=== PATIENT | male | born 1990 | race Caucasian/White ===

== ENCOUNTER 2025-10-13 13:10 | Outpatient (OUT) | payer OTHER, SELFPAY ==
--- OUTSIDE RECORDS SUMMARY | 2025-10-06 08:57 | XMS_ITS | Continuity of Care Document ---
Author Organization [facility] Address [address] [place] [address] Phone Care Team Providers Care Student Life Dean Name Role Phone Boo Jamil II Primary Care Provider Ivonne Naik APRN Attending Provider [phone] Care Teams Patient Care Team Team Status: Active Member Role/Relationship Status Dates Boo Jamil II MD Primary Care Provider Active Visit Care Team Team Status: Inactive Member Role/Relationship Status Dates Boo Jamil II MD Primary Care Provider Active Start: July 08, 2025 End: July 08Citlalli Lou ProviderActiveStart: July 08, 2025 End: July 08, 2025 Visit Care Team Team Status: Inactive Member Role/Relationship Status Dates Boo Jamil II MD Primary Care Provider Active Start: July 10, 2025 End: July 10Citlalli Lou ProviderActiveStart: July 10, 2025 End: July 10, 2025 Patient Care Team Team Status: Inactive Member Role/Relationship Status Dates Boo Jamil II MD Primary Care Provider Active Start: October 06, 2025 End: October 06Citlalli Lou ProviderActiveStart: October 06, 2025 End: October 06, 2025 Chief Complaint and Reason for Visit Chief Complaint Admit Date 2-3 Month Follow up *KSENIA SB TO ND July 08, 2025 9:49am LEFT CERVICAL TPI - APPROVED #[id number] July 10, 2025 12:55pm 2 month follow up October 06, 2025 1:12pm Reason for Visit Admit Date Myalgia July 08, 2025 9: 49am Spondylosis of cervical spine without my elopathy July 08, 2025 9:49am Muscle spasm July 10, 2025 12 :55pm Myalgia July 10, 2025 12 :55pm Neck pain July 10, 2025 12 :55pm Myalgia October 06, 2025 1:12pm Spondylosis of cervical spine without my elopathy October 06, 2025 1:12pm Allergies, Adverse Reactions, Alerts Allergen Type Severity Reaction Last Updated Verified Status amoxicillin Allergy Unknown Rash September 1:32pm Yes Active cefaclor Allergy Unknown Rash October 06, 2025 1:32pm Yes Active cefprozil Allergy Unknown Unknown Reaction October 06, 2025 1:32pm Yes Active colchicine Allergy Unknown Gastrointestinal Upset No vember 2024 1:32pm Yes Active gabapentin Allergy Unknown difficulty focusing Novem leonora 2024 1:32pm Yes Active Social History Smoking Status Status Start Date End Date Date of Observa tion Never smoked tobacco (finding) July 08, 2025 10:19am Observation Status Observation Response Date of Response Legal Sex [facility] (finding) [facility] Family History Relationship Condition Age at Onset Recorded Date/T michelle Not Specified Family history unknown Unknown Problems Active Problems Problem Diagnosis/Recorded Date Onset Date Stat us Spondylosis of cervical spin e without myelopathy July 08, 2025 9:42am Unknown Active Muscle spasm July 10, 2025 4:39pm Unknown Act keny Myalgia July 08, 2025 9:41am Unknown Act keny Neck pain July 10, 2025 4:37pm Unknown Act keny Medications Medication Status Dose Units Route Directions Qty Days Refills S tart Date Stop Date End Date Reason(s) Instructions Adherence Celecoxib (Celebrex) 100 mg capsule Discontinued 100 MG PO Twice daily July 07, 2025 11:00pmAugust 2024 9:43amCyclobenzaprine 10 mg tablet Ftuelemrbemi6YRErfne at bedtimeJuly 07, 2025 11:00pmAugus2024 9:44am 1/2-1 tablet orally daily at bedtime;Cyclobenzaprine 10 mg uyjjsgAtzsvg9CUJuuzv at rzlbxxx808BcblkqJuly 08, 2025 9:43am1/2-1 tablet orally daily at bedtime; Complies with drug therapyNaproxen 500 mg dhkvzrLsyopa040UQMSVmcjl daily as needed for kjdh205Ppgvxc 25th, 2025 11:00pmComplies with drug therapy Vital Signs Vital Reading Result Reference Range Collection Date/Time Height 77 [in_i] July 08, 2025 9:33boNexbtk549.98 kgAugust 2024 9:10amHeart Rate86 /min 60-100August 2024 9:10amBP Uhcuylis684 mm[Hg]100-140August 2024 9:10amBP Xjakrubky38 mm[Hg]60-100August 2024 9:10amBMI (Body Mass Index) 35.8 kg/j4Metfee 2024 9:10amHeart Rate83 /ndv52-613Xdkqmx 2024 12:14pmBP Xkpfpgse000 mm[Hg]100-140August 2024 12:14pmBP Mvrquhnwt01 mm[Hg]60-100August 2024 12:51kjVskyrr22 [in_i]October 06, 2025 1:28pm Tcijov569.31 kgNovember 2024 1:28pmHeart Rate75 /snp66-951QknmnmfrOctober 06, 2025 1:28pmOxygen saturation by Pulse zncevhch88 %95-100October 06, 2025 1:28pmBP Ziosdcvk890 mm[Hg]100-140Nov2024 1:28pmBP Tsigyjzay04 mm[Hg]60-100Nov2024 1:28pmBMI (Body Mass Index)40.1 kg/l9Rmhcjxgi 2024 1:28pm Advance Directives Advance Directive Response Recorded Date/ Time Advance Directives No July 08, 2025 8:47am Insurance Providers Guarantor Prashanth Penny Address [address] [facility] [address]uc[address] Info.Home Phone: Coverage Status Update:2025 Payer Group Member ID Coverage Type Subscriber Relationship to Subscriber Effective Date Expiration Date [employer] [id number] A [address] Id: [id number] [address] [facility] [address] Home Phone: seli Encounters Encounter Location(s) Arrival/Admit Date Discharge/Departure Date Discharge/Departure Disposition Provider(s) Departed Physician/ Provider Office Visit -[facility] [place] July 08, 2025 9:49am July 08, 2025 10:46am Discharged to home care or self care (routine discharge) Osmin Daniels APRN Departed Physician/ Provider Office Visit -[facility] [place] July 10, 2025 12:55pm July 10, 2025 1:18pm Discharged to home care or self care (routine discharge) Osmin Daniels APRN Departed Physician/ Provider Office Visit -[facility] October 06, 2025 1:12pm October 06, 2025 1:55pm Discharged to home care or self care (routine discharge) Osmin Daniels APRN Recent Diagnosis Onset Date Admit Date Myalgia Unknown July 08 9:49am Spondylosis of cervical spin e without myelopathy Unknown July 08, 2025 9:49am Muscle spasm Unknown July 10 12:55pm Myalgia Unknown July 10 12:55pm Neck pain Unknown July 10 12:55pm Myalgia Unknown October 06, 2 025 1:12pm Spondylosis of cervical spin e without myelopathy Unknown October 06, 2025 1:12pm Assessments Diagnosis Onset Date Resolution Status Admit Date Myalgia acuteAugus2024 9:49amSpondylosis of cervical spine without myelopathy acuteAugust 2024 9:49amMuscle spasmacuteAugus2024 12:55pmMyalgia acuteAugust 2024 12:55pmNeck painacuteAugust 2024 12:55pmMyalgia acuteNovember 2024 1:12pmSpondylosis of cervical spine without myelopathy acuteNovember 2024 1:12pm Plan of Treatment Author Ivonne Naik [facility]2024 9:54am1. 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 2. MRI of the cervical spine completed on 03/15/23 showed central disc protrusion which results in effacement of the thecal sac measuring 10 mm in AP dimension at C5-C6. No foraminal stenosis. At C7-T1 there is broad-based left-sided disc osteophyte complex measuring up to 3 mm in AP dimension resulting in moderate lateral recess narrowing on the left and moderate left foraminal narrowing without central stenosis. At T1-T2 mild endplate spurring without central or foraminal stenosis. At T2-3 there is right paracentral and lateral recess disc protrusion measuring 4 mm in AP dimension resulting in moderate to severe lateral recess narrowing on the right and vgqn-rk-kalbtvjf right foraminal narrowing without central stenosis 3. XR of the cervical spine 12/22/22 that revealed mild straightening of the normal lordotic curvature, likely muscle spasm. 4. XR of the thoracic spine that revealed mild dextroscoliosis and loss of the normal kyphotic curvature. . . The patient is a 34 year old male that presents with neck pain that radiates into the left shoulder. He has multilevel DDD of the cervical spine. He was on Gabapentin and felt groggy and fatigue with this without much benefit. He has been on flexeril and skelaxin in the past and zanaflex. He did not tolerate mobic. He is no longer taking the Celebrex as he took it for 2 weeks and could not feel any improvement. We will now try Naproxen. He does benefit from the Flexeril. It improves his sleep. He cannot take during the day as it is sedating. 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 His left arm does have numbness in the night as he does sleep on his left side. 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 We can consider neurosurgical referral based on his clinical course but he would like to hold off on this. He does continue with pain to the left trapezius muscle and left side of his neck. He has completed PT. He did have left side cervical/trapezius trigger points injections April 01, 2025. He did benefit as he was pain free for several weeks and then the pain started to return. We will reschedule these. We did discuss pain mgt option pending course. ?? 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 He is wearing splints at night which helps with the symptoms. Can consider ortho referral based on his symptoms. No worsening. . ??. ??. PLAN KSENIA from Dr. Fitzgerald to Schedule left sided cervical and trapezius TPI Trial Naproxen 500 mg po BID prn, for inflammatory pain, take with cracker or snack Continue flexeril 10mg 1/2 -1 tab PO at bedtime for muscle spasms Stop celebrex Continue with regular massage and stretching exercises Get back to heat on neck area Do not sleep on left side I counseled patient on potential medication side effects Consider neurosurgical referral pending his clinical course Consider pain mgt referral pending course The diagnosis was all discussed with the patient.?? All questions were answered and they agreed with the treatment plan.?? Patient will call if there are any new issues or questions. [facility] 20[facility] 1:41pm1. 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 2. MRI of the cervical spine completed on 03/15/23 showed central disc protrusion which results in effacement of the thecal sac measuring 10 mm in AP dimension at C5-C6. No foraminal stenosis. At C7-T1 there is broad-based left-sided disc osteophyte complex measuring up to 3 mm in AP dimension resulting in moderate lateral recess narrowing on the left and moderate left foraminal narrowing without central stenosis. At T1-T2 mild endplate spurring without central or foraminal stenosis. At T2-3 there is right paracentral and lateral recess disc protrusion measuring 4 mm in AP dimension resulting in moderate to severe lateral recess narrowing on the right and axgl-wb-wsrfkdsu right foraminal narrowing without central stenosis 3. XR of the cervical spine 12/22/22 that revealed mild straightening of the normal lordotic curvature, likely muscle spasm. 4. XR of the thoracic spine that revealed mild dextroscoliosis and loss of the normal kyphotic curvature. . . The patient is a 34 year old male that presents with neck pain that radiates into the left shoulder. He has multilevel DDD of the cervical spine. He was on Gabapentin and felt groggy and fatigue with this without much benefit. He has been on flexeril and skelaxin in the past and is now on zanaflex. He did not tolerate mobic. He is no longer taking the Celebrex as he took it for 2 weeks and could not feel any improvement. Naproxen was too hard on his stomach. He does benefit from the Flexeril. It improves his sleep. He cannot take during the day as it is sedating. 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 His left arm does have numbness in the night as he does sleep on his left side. 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 We can consider neurosurgical referral based on his clinical course but he would like to hold off on this. He does continue with pain to the left trapezius muscle and left side of his neck. He has completed PT. He did have left side cervical/trapezius trigger points injections April 01, 2025. He did benefit as he was pain free for several weeks and then the pain started to return. We will reschedule these. We did discuss pain mgt option pending course. ?? 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 He is wearing splints at night which helps with the symptoms. Can consider ortho referral based on his symptoms. No worsening. . ??. ??. PLAN Schedule left sided cervical and trapezius TPI He is not taking Naproxen 500 mg po BID prn, for inflammatory pain, take with cracker or snack Continue Zanaflex 4mg 1/2-1 at bedtime for muscle spasms Continue with regular massage and stretching exercises Get back to heat on neck area Do not sleep on left side I counseled patient on potential medication side effects Consider neurosurgical referral pending his clinical course Consider pain mgt referral pending course The diagnosis was all discussed with the patient.?? All questions were answered and they agreed with the treatment plan.?? Patient will call if there are any new issues or questions. Author Ivonne Naik [facility] 2024 4:48pmPatient ID: Prashanth Penny is a 34 y.o. male presenting for left sided cervical trigger point injections. Purpose of the procedure: Trigger point injections were performed today due to the patient having significant myalgias muscle spasms and pain. ?? Trigger Point Injection: left upper trapezius on 04/01/2025 9:00 AM Indications: pain, muscle spasm and myalgia Details: 25 G needle Medications: 40 mg methylPREDNISolone Na Suc (PF) 40 MG; 2 mL bupivacaine 0.25 % Outcome: tolerated well, no immediate complications Procedure, treatment alternatives, risks and benefits explained, specific risks discussed. Consent was given by the patient. ?? Injections given by Ivonen QUEVEDO into the left cervical paraspinals, left semispinalis capitis, and left upper trapezius ? During consent for the procedure, the patient denies cow milk allergy.?? The anesthetic used during the trigger injection was surface anesthesia.?? During the trigger point injection the patient was placed in a sitting position. Patient has consented after being explained the risks, complications, and benefits; including pneumothorax for the trigger point in the upper quarters and in the interscapular region. This was done using clean technique and surface anesthetic. The patient tolerated the procedure well.?? Future Tests Future scheduled test information is unavailable Pending Tests Pending diagnostic test information is unavailable Future Visits Future appointment information is unavailable Future Procedures Future procedure information is unavailable Future Medications Future medication information is unavailable Patient Instructions Patient instructions are unavailable
--- OUTSIDE RECORDS SUMMARY | 2025-10-13 13:15 | XMS_ITS | Clinical Summary ---
Author Organization [facility] Address [address] [place], [place] [address] Care Team Providers Care Insurance Broker Name Role Phone Omero TORRES MD, Boo Rainey Primary Care Provider [phone] Allergies Active AllergyReactionsCriticalityNoted SqbwIzcwpgblKhxkwxavcjqWgxttna56/11/2014 VuzxaernQeduveb86/11/5271CdctreysoShxkdhd63/11/2014 Medications MedicationSigDispense QuantityRefillsLast FilledStart DateEnd DateStatus diclofenac XR (VOLTAREN-XR) 100 mg Tb24 Take 100 mg by mouth twice daily as needed.10/11/2021ctive acetaminophen (TYLENOL) 500 mg tablet Take 1-2 tablets by mouth every 6 hours as needed for pain.12/25/2021ctive gabapentin (NEURONTIN) 300 mg capsule Take 1 capsule by mouth three times daily for 30 days. 90 capsule 12/28/2021ctive methylPREDNISolone (MEDROL, REMY,) 4 mg Dose-Pack Indications:Radiculopathy, lumbar regionAs instructed per package 21 tablet 12/28/2021ctive Active Problems ProblemNoted DateDiagnosed DateLumbar iozawhfqtjvhn47/11/2022cute lumbar shsrqqveuqoqo59/11/2022 Social History Tobacco UseTypesPacks/DayYears UsedDateSmoking Tobacco: NeverSmokeless Tobacco: NeverAlcohol UseStandard Drinks/WeekCommentsYes0 (1 standard drink = 0.6 oz pure alcohol)Area Deprivation IndexAnswerDate RecordedNational Score (1-100), lower number is lower boig688711/28/2022State Score (1-10), lower number is lower risk Not on file3Data from: https://www.neighborhoodatlas.medicine.[facility].edu/. Last address used for [address][birth year][address][birth year]22Sex and Gender InformationValueDate Recorded Sex Assigned at BirthNot on fileLegal NiiCqww9212/24/2021 11:14 AM ESTGender IdentityNot on fileSexual OrientationNot on file Last Filed Vital Signs Vital SignReadingTime TakenCommentsBlood Eljkgpkx946/56001/01/2022 9:29 AM EST Ubuxc572601/01/2022 9:29 AM FNDQybzqyoisss85.8 ??C (98.2 ??F)01/01/2022 9:29 AM ESTRespiratory Cxiw212001/01/2022 9:29 AM ESTOxygen Qdhtlslouc670%01/01/2022 9:29 AM ESTInhaled Oxygen Concentration--Zzemfs321.3 kg (338 lb)06/02/2022 8:33 AM MADKotosq009 cm (6' 4 )12/28/2021 1:04 PM ESTBody Mass Index41.14012/28/2021 1:04 PM EST Plan of Treatment Health MaintenanceDue DateLast DoneCommentsDTaP,Tdap,Td Vaccine (6 - Tdap) , 02/23/1994, 04/04/1993, Additional history existsAnxiety Fqnfymfdn37/01/2010Depression Iczsilvln85/01/2010HIV Zrhznwhwy78/01/2010 Hepatitis C Oyxzxtyut67/01/2010HPV Vaccine (1 - 3-dose SCDM series)2019 Covid-19 Vaccine (3 2024- season)509/, 07/19/2021Influenza Vaccine (#1)2025Hepatitis B FiqjpvnRjicspldo70/21/1994, 06/08/1994, 02/23/1994 Insurance Advance Directives * Full Code (Latest Code Status on File) Date ActivatedDate InactivatedComments12/24/2021 9:32 PM2 4:42 PMQuestion AnswerCommentsFull Code Order Discussed With:* Patient Care Teams Team MemberRelationshipSpecialtyStart DateEnd Date Boo Jamil II, MD [address] [facility] [address] [place] [address] PCP - GeneralInternal Medicine12/24/21
--- OUTSIDE RECORDS SUMMARY | 2025-10-13 13:15 | XMS_ITS | Encounter Summary ---
Author Organization [facility] Address [address] [facility] [place] [address] Care Team Providers Care Grounds Maintenance Worker Name Role Phone Boo Jamil MD Primary Care Provider [phone] Nicole Acevedo NP Unavailable [phone] Susi rBavo Unavailable Encounter Details DateTypeDepartmentCare Team (Latest Contact Info)Jftglmrbyvr48/24/2025bstract [facility] [address] [place] [address] Boo Jamil MD [address] [facility] [address] [place] [address] Social History Tobacco UseTypesPacks/DayYears UsedDateSmoking Tobacco: NeverSmokeless Tobacco: NeverAlcohol UseStandard Drinks/WeekCommentsYes0 (1 standard drink = 0.6 oz pure alcohol)B1300 Health LiteracyAnswerDate RecordedHow often do you need to have someone help you when you read instructions, pamphlets, or other written material from your doctor or pharmacy?Never11/18/2024Social Connection and Isolation PanelAnswerDate RecordedIn a typical week, how many times do you talk on the phone with family, friends, or neighbors?More than three times a week 11/18/2024How often do you get together with friends or relatives?Twice a week 11/18/2024How often do you attend yarsanism or confucianism services?Never11/18/2024Do you belong to any clubs or organizations such as yarsanism groups, unions, fraternal or athletic groups, or school groups?No01/06/2025How often do you attend meetings of the clubs or organizations you belong to?Never11/18/2024re you , , , , never , or living with a partner?Never mqjdlpi7111/18/2024UDIT-CAnswerDate RecordedQ1: How often do you have a drink containing alcohol?Monthly or less11/18/2024Q2: How many drinks containing alcohol do you have on a typical day when you are drinking?1 or 2 11/18/2024Q3: How often do you have six or more drinks on one occasion?Never 11/18/2024Overall Financial Resource Strain (CARDIA)AnswerDate RecordedHow hard is it for you to pay for the very basics like food, housing, medical care, and heating?Not hard at all11/18/2024[facility] [place] of Occupational Health - Occupational Stress QuestionnaireAnswerDate RecordedDo you feel stress - tense, restless, nervous, or anxious, or unable to sleep at night because yourmind is troubled all the time - these days?Rather much11/18/2024Exercise Vital Sign AnswerDate RecordedOn average, how many days per week do you engage in moderate to strenuous exercise (like a brisk walk)?2 days11/18/2024On average, how many minutes do you engage in exercise at this level?30 min11/18/2024Hunger Vital SignAnswerDate RecordedWithin the past 12 months, you worried that your food would run out before you got the money to buymore.Never true11/18/2024Within the past 12 months, the food you bought just didn't last and you didn't have money to get more.Never true11/18/2024PRAPARE - TransportationAnswerDate RecordedIn the past 12 months, has lack of transportation kept you from medical appointments or from getting medications?No11/18/2024In the past 12 months, has lack of transportation kept you from meetings, work, or from getting things needed for daily living?No11/18/2024Housing Stability Vital SignAnswerDate RecordedIn the last 12 months, was there a time when you were not able to pay the mortgage or rent on time?No11/18/2024Number of Times Moved in the Last Year Not on file11/18/2024t any time in the past 12 months, were you homeless or living in a jail (including now)?No11/18/2024Sex and Gender InformationValue Date RecordedSex Assigned at BirthNot on fileLegal EzyKiic9601/25/2023 6:45 PM EDT Gender IdentityNot on fileSexual OrientationNot on filedocumented as of this encounter Plan of Treatment Not on file documented as of this encounter Visit Diagnoses Not on filedocumented in this encounter Care Teams Team MemberRelationshipSpecialtyStart DateEnd Date Boo Jamil MD [address] [address] PCP - GeneralInternal Medicine03/21/23 Nicole Acevedo NP PCP - [facility]11/13/24 Susi Bravo PA Physician AssistantNeurology01/28/25documented as of this encounter
--- OUTSIDE RECORDS SUMMARY | 2025-10-13 13:15 | XMS_ITS | Clinical Summary ---
Author Organization [facility] Address [address] [place] [address] Care Team Providers Care Wardrobe Manager Name Role Phone Boo Jamil MD Primary Care Provider [phone] Nicole Acevedo NP Unavailable [phone] Susi Bravo Unavailable Allergies Active AllergyReactionsCriticalityNoted DateCommentsAmoxicillinRash,UnknownLow 08/23/2014CefaclorRash,IuxvpkiVww48/11/6151NkxkezaetQbfnhzl54/11/2014Colchicine GI mlbzioyjvjmQaiieg64/12/2024 Diarrhea, Vomiting NkpzymbfgdUzk42/12/2024 Difficulty focusing. Medications MedicationSigDispense QuantityRefillsLast FilledStart DateEnd DateStatus allopurinol (Zyloprim) 100 MG tablet Indications:Gouty arthropathyTake 1 tablet (100 mg) by mouth Daily 90 tablet 4Active Additional Information Patient not taking.Reported on 01/28/2025 methylPREDNISolone (Medrol Dospak) 4 MG tablets Indications:Gouty arthropathyFollow schedule on package instructions 21 tablet 5Active Additional Information Patient not taking.Reported on 01/28/2025 cyclobenzaprine (Flexeril) 10 MG tablet Indications:Spondylosis of cervical region without myelopathy or radiculopathy Take 0.5-1 tablets (5-10 mg) by mouth at bedtime 30 tablet 5Active celecoxib (CeleBREX) 100 MG capsule Indications:Spondylosis of cervical region without myelopathy or radiculopathy Take 1 capsule (100 mg) by mouth in the morning and 1 capsule (100 mg) before bedtime. 60 capsule 5Active Active Problems ProblemNoted DateDiagnosed DateImpaired fasting hffnrje5312/24/2024Morbid obesity with BMI of 50.0-59.9, adult4Cervical dstcxiylg51/31/2024arpal tunnel syndrome, left upper limb07/13/2024 Overview (07/13/2024): Mild CTS on the left on EMG. He is wearing splints at night which helps with the symptoms. Can consider ortho referral based on his symptoms Ntozmgwddei32/31/2024egeneration of cervical intervertebral disc07/13/2024 Carpal tunnel syndrome of left wrist07/13/2024Spondylosis of cervical region without myelopathy or nifrqqtpctcqz57/31/2024 Overview (07/13/2024): The patient is a 33 year old male that presents with neck pain that radiates into the right shoulder. He has multilevel DDD of the cervical spine. He is on Gabapentin, flexeril and skelaxin with toilerable symptoms. MRI did show significant foraminal stenosis the is contributing to his radicular symptoms. We can consider neurosurgical referral based on his clinical course. Lumbar zycmimpm87/02/2024Other chronic pain11/14/2023epression with anxiety 3Disc displacement, wmwhzm5410/18/2023Elevated uric acid in blood 10/18/2023outy tkveqbqkrux02/06/2023Lumbar uwdouqwxkpeng03/11/2022 Encounters DateTypeDepartmentCare WqurIspiygeojbu51/24/2025bstract [facility] [address] [facility] [address] [place] [id number] Boo Jamil MD from Last 3 Months Immunizations ImmunizationAdministration DatesNext QjzDIE6304/04/1993,02/10/1993,1992DTaP, Yvbxcgmarpq99/06/1998,02/23/1994Hep B, Adolescent or Xxhusales07/21/1994, 06/08/1994,02/23/1994HiB, jsuhrvbdusq84/13/1994,04/04/1993,02/10/1993,1992 MMR03/18/1998,02/23/1994OPV03/18/1998,02/23/1994,02/10/1993,1992 Family History CkajkvgrZubrAbcvhbWvfuvgekLfiznlgx0VkvmgoRvbutZindixUxkru Social History Tobacco UseTypesPacks/DayYears UsedDateSmoking Tobacco: NeverSmokeless [...] a week 11/18/2024How often do you attend roman catholic or rastafarian services?Never11/18/2024Do you belong to any clubs or organizations such as roman catholic groups, unions, fraternal or athletic groups, or school groups?No11/18/2024How often do you attend meetings of the clubs or organizations you belong to?Never11/18/2024re you , , , , never , or living with a partner?Never tjerjei9111/18/2024UDIT-CAnswerDate RecordedQ1: How often do you have a [...] housing, medical care, and heating?Not hard at all11/18/2024[facility] [place] of Occupational Health - Occupational Stress QuestionnaireAnswerDate [...] were you homeless or living in a halfway (including now)?No11/18/2024Sex and Gender InformationValue Date RecordedSex Assigned at BirthNot on fileLegal QjvLyaq1801/25/2023 6:45 PM EDT Gender IdentityNot on fileSexual OrientationNot on file Last Filed Vital Signs Vital SignReadingTime TakenCommentsBlood Shyljhog934/8404/01/2025 9:00 AM EDT Swakb083604/01/2025 9:00 AM IYQTknqesleqbz04.1 ??C (98.7 ??F)11/18/2024 10:47 AM ESTRespiratory Pojh595504/01/2025 9:00 AM EDTOxygen Hxgbntndov92%04/01/2025 9:00 AM EDTInhaled Oxygen Concentration--Cmqjje189 kg (343 lb)04/01/2025 9:00 AM EDT Shpisv178.6 cm (6' 5 )04/01/2025 9:00 AM EDTBody Mass Index40.67004/01/2025 9:00 AM EDT Plan of Treatment Health MaintenanceDue DateLast DoneCommentsCOVID-19 Vaccine ( season) 509/, 07/19/2021Influenza Vaccine (#1)2025Pneumococcal Vaccine: Pediatrics (0 to 5 Years) and At-Risk Patients (6 to 64 Years)Aged Out No longer eligible based on patient's age to complete this topic Insurance Care Teams Team MemberRelationshipSpecialtyStart DateEnd Boo Jamil MD [address] [facility] [address] [place] [address] PCP - GeneralInternal Medicine03/21/23 Nicole Acevedo COCOA MILL OPERATOR PCP - [facility]11/13/24 Susi Bravo PA Physician AssistantNeurology01/28/25
--- NOTE | 2025-10-13 13:53 | P.CN_ITS ---
Consult Note: HPI Data of Consult Patient: new to practice Consult date: 10/13/25 Requesting Physician: Jannet Gil MD Primary Care Provider: JANUARY SIMS Consult Narrative Reason for consult: neck pain, bilateral arm numbness Narrative: 35yom who presents for evaluation. notes longstanding neck and left shoulder pain for >3 years, as well as worsening numbness and tingling in bilateral upper extremities. states that he first noticed this after waking up from lumbar surgery several years ago. has continued in a series of provider directed home exercises and chiropractic therapy >6 weeks, without benefit. uses flexeril as needed, naproxen has not helped. cc:: CC: Jannet Gil MD Review of Systems ROS Status of ROS 10 or more systems reviewed and unremark able except as noted in history and below Meds Home Medications and Allergies Home Medications ?Medication ?Instructions ?Recorded ?Confirmed ?Type pregabalin 50 mg capsule (Lyrica) 50 mg PO TID #90 cap s 10/13/25 Rx Exam Narrative Exam Narrative: Psych-alert and oriented x 3.? Attentive and appropriate, constitutionally normal, displays normal mood and affect per situation.? There are no obvious deficits in memory, reasoning, or intellect.? Skin-no obvious rashes, bruising, or erythema noted to the patient's area of pain.? Extremities-upper extremities are warm with minimal edema and palpable pulses. Cervical- tenderness to palpation noted in the cervical spine and paraspinal musculature.? Pain is elicited with flexion, extension, and lateral rotation of the cervical spine.? Range of motion is diminished due to pain. Facet loading maneuvers are positive.? Strength-unremarkable and within normal limits Sensory-no notable sensory deficits in the bilateral upper extremities to touch or pinprick with the exception to decreased sensation to the bilateral C5, 6, 7 dermatomal distribution.? Coordination remains intact.? Gait remains non-antalgic. Assessment and Plan Assessment and Plan (1) Cervical stenosis of spinal canal: (2) Cervical spondylosis: Plan 35yom who presents for evaluation. failed conservative measures, as noted. previous cervical imaging done several years ago. given worsening symptoms and time course, would like to obtain cervical mri without contrast. he is in agreement. meds reviewed. will trial lyrica 50mg tid. follow up after imaging.
== END 2025-10-13 13:11 | disposition home or self-care (01) ==
LOC: PM 13:11
PROVIDERS: PCP Internal Medicine; Visit Provider Anesthesiology
DX: M48.02 Spinal stenosis, cervical region (principal); M47.812 Spondylosis without myelopathy or radiculopathy, cervical region
CPT/HCPCS: G0463

== ENCOUNTER 2025-10-30 10:24 | Outpatient (OUT) | payer OTHER, SELFPAY ==
--- NOTE | 2025-10-30 10:31 | MR_ITS ---
[address] [address] Patient Name: VADIM SUGGS MRN: [id number] date: 1990 Sex: M Assigned Patient Location: MRI Current Patient Location: MRI Accession/Order Number: [id number] Exam Date: 10/30/2025 10:35 Report Date: 10/30/2025 12:30 At the request of: YOLANDA STINSON MD Procedure: MR cervical spine wo con EXAMINATION: MRI OF THE CERVICAL SPINE WITHOUT CONTRAST CLINICAL DATA: Chronic neck pain with left arm numbness COMPARISON: 03/15/2023 TECHNIQUE: Multiecho imaging was performed in the sagittal and axial plane without contrast administration. FINDINGS: There is continued straightening of the normal cervical lordosis. Alignment is maintained on the sagittal images. There is no marrow edema or acute compression fractures. There is a normal cervicomedullary junction. The cord is normal in caliber and signal intensity throughout its imaged course. A few small shotty cervical lymph nodes are visualized. At C2-3, no disc bulge or herniation is seen. There is slight asymmetric facet disease on the left. No stenosis is identified. At C3-4, the disc is normal in height and signal intensity. No disc bulge or herniation is noted. There is mild facet disease, greater on the left. There is mild right and suspected moderate left foraminal encroachment. At C4-5, the disc is within normal limits for height and signal intensity. No disc bulge or herniation is identified. There is bilateral facet hypertrophy, greater on the left where there is associated moderate foraminal encroachment. At C5-6 there is disc desiccation. There is mild central/left parasagittal disc osteophytic bulging. There is minor facet disease. There is continued thecal sac effacement on the left approaching and slightly indenting the cord, similar to the prior. Slight foraminal encroachment is present, greater on the left. At C6-7, there is minor disco-osteophytic bulging toward the left lateral recess/foramen. There is no significant thecal sac effacement. There is mild facet disease. Mild to moderate left foraminal encroachment is again noted. At the cervicothoracic junction, there is a broad-based left parasagittal disc protrusion that is similar to the prior. There is continued mild thecal sac and moderate left neural foraminal encroachment. At T2-3, there is no axial imaging however there is disco exophytic bulging in the right parasagittal region extending through the neural foramen where there is associated thecal sac effacement and foraminal encroachment. MR/MR cervical spine wo con IMPRESSION:: CONTINUED STRAIGHTENING OF THE NORMAL CERVICAL LORDOSIS. CONTINUED MILD DISCOVERTEBRAL DEGENERATIVE CHANGES, GREATER DISTALLY OUTLINED ABOVE. Impression dictated by: Sarah Salmon M.D. 10/30/2025 12:30 PM Dictation Location: [place] [address] Electronically authenticated by: [id number] Y Date: 10/30/2025 12:30
--- OUTSIDE RECORDS SUMMARY | 2025-10-30 10:33 | XMS_ITS | Clinical Summary ---
Author Organization [facility] Address [address] [place], [place] [address] Care Team Providers Care Laborer Bituminous Paving Name Role Phone Omero TORRES MD, Boo Rainey Primary Care Provider [phone] Allergies Active AllergyReactionsCriticalityNoted CwyjSoltitzaRuglhhxhmzoDjhpduk73/11/2014 PrbyzknaCypanqq21/11/5210WfdakdsllSmjqjny57/11/2014 Medications MedicationSigDispense QuantityRefillsLast FilledStart DateEnd DateStatus diclofenac [...] tablet 12/28/2021ctive Active Problems ProblemNoted DateDiagnosed DateLumbar lyihuynoeircs05/11/2022cute lumbar kungceigkzhgn08/11/2022 Social History Tobacco UseTypesPacks/DayYears UsedDateSmoking Tobacco: NeverSmokeless Tobacco: NeverAlcohol UseStandard Drinks/WeekCommentsYes0 (1 standard drink = 0.6 oz pure alcohol)Area Deprivation IndexAnswerDate RecordedNational Score (1-100), lower number is lower rxpp700711/28/2022State Score (1-10), lower number is lower risk Not on file3Data from: https://www.neighborhoodatlas.medicine.[facility].edu/. Last address used for [address]11/28/2022Sex and Gender InformationValueDate Recorded Sex Assigned at BirthNot on fileLegal IdkZrwm6312/24/2021 11:14 AM ESTGender IdentityNot on fileSexual OrientationNot on file Last Filed Vital Signs Vital SignReadingTime TakenCommentsBlood Zoterbqw404/56001/01/2022 9:29 AM EST Qygub410301/01/2022 9:29 AM KOZNvodnbvfsux29.8 ??C (98.2 ??F)01/01/2022 9:29 AM ESTRespiratory Elch719201/01/2022 9:29 AM ESTOxygen Aivqdcvjrn727%01/01/2022 9:29 AM ESTInhaled Oxygen Concentration--Mazxho316.3 kg (338 lb)06/02/2022 8:33 AM DWOArauuw105 cm (6' 4 )12/28/2021 1:04 PM ESTBody Mass Index41.14012/28/2021 1:04 PM EST Plan of Treatment Health MaintenanceDue DateLast DoneCommentsDTaP,Tdap,Td Vaccine (6 - Tdap) , 02/23/1994, 04/04/1993, Additional history existsAnxiety Xicvprcuz03/01/2010Depression Wvtiwybzd53/01/2010HIV Dhwepeitr32/01/2010 Hepatitis C Eayxhherf02/01/2010HPV Vaccine (1 - 3-dose SCDM series)2019 Covid-19 Vaccine (3 2024- season)509/, 07/19/2021Influenza Vaccine (#1)2025Hepatitis B EwmyjdcZfzxjttgq01/21/1994, 06/08/1994, 02/23/1994 Insurance Advance Directives * Full Code (Latest Code Status on File) Date ActivatedDate InactivatedComments12/24/2021 9:32 PM2 4:42 PMQuestion AnswerCommentsFull Code Order Discussed With:* Patient Care Teams Team MemberRelationshipSpecialtyStart DateEnd Date Boo Jamil II, MD [address] [facility] [address] [place] [address] PCP - GeneralInternal Medicine12/24/21
--- OUTSIDE RECORDS SUMMARY | 2025-10-30 10:33 | XMS_ITS | Clinical Summary ---
Author Organization [facility] Address [address] [place] [address] Care Team Providers Care Geotechnical Operating Engineer Name Role Phone Boo Jamil MD Primary Care Provider [phone] Nicole Acevedo NP Unavailable [phone] Susi Bravo Unavailable Allergies Active AllergyReactionsCriticalityNoted DateCommentsAmoxicillinRash,UnknownLow 08/23/2014CefaclorRash,XvjbujwSrt17/11/1223FmmfjqvqiWmathtf95/11/2014Colchicine GI msnzdvgwwelCdxagm04/12/2024 Diarrhea, Vomiting SuntjpaseuGzu04/12/2024 Difficulty focusing. Medications MedicationSigDispense QuantityRefillsLast FilledStart DateEnd [...] 5Active Active Problems ProblemNoted DateDiagnosed DateImpaired fasting zfknzfl6612/24/2024Morbid obesity with BMI of 50.0-59.9, adult4Cervical enaomyttu57/31/2024arpal tunnel syndrome, left upper limb07/13/2024 Overview (07/13/2024): Mild CTS on the left on EMG. He is wearing splints at night which helps with the symptoms. Can consider ortho referral based on his symptoms Iygxtgtktxe34/31/2024egeneration of cervical intervertebral disc07/13/2024 Carpal tunnel syndrome of left wrist07/13/2024Spondylosis of cervical region without myelopathy or rzozzzqmdowdm84/31/2024 Overview (07/13/2024): The patient is a 33 year old male that presents with neck pain that radiates into the right shoulder. He has multilevel DDD of the cervical spine. He is on Gabapentin, flexeril and skelaxin with toilerable symptoms. MRI did show significant foraminal stenosis the is contributing to his radicular symptoms. We can consider neurosurgical referral based on his clinical course. Lumbar eywdheyz90/02/2024Other chronic pain11/14/2023epression with anxiety 3Disc displacement, kzdtjf6010/18/2023Elevated uric acid in blood 10/18/2023outy wqjxjomqjoj81/06/2023Lumbar soetotlrogizk67/11/2022 Encounters DateTypeDepartmentCare SivcKnuahfqocwy14/24/2025bstract [facility] [address] [place] [address] [place] [phone] Boo Jamil MD from Last 3 Months Immunizations ImmunizationAdministration DatesNext MyrEVD1304/04/1993,02/10/1993,1992DTaP, Lcbdswjhhau36/06/1998,02/23/1994Hep B, Adolescent or Fmziqmddy06/21/1994, 06/08/1994,02/23/1994HiB, oejgpnuimyr98/13/1994,04/04/1993,02/10/1993,1992 MMR03/18/1998,02/23/1994OPV03/18/1998,02/23/1994,02/10/1993,1992 Family History HthklhyaRoscHvhigxDauxbfbgMlcxeddy7IbtlgkQwihbQwrpycJhtah Social History Tobacco UseTypesPacks/DayYears UsedDateSmoking Tobacco: NeverSmokeless [...] a week 11/18/2024How often do you attend congregation or voodoo services?Never11/18/2024Do you belong to any clubs or organizations such as congregation groups, unions, fraternal or athletic groups, or school groups?No11/18/2024How often do you attend meetings of the clubs or organizations you belong to?Never11/18/2024re you , , , , never , or living with a partner?Never lbphawy5711/18/2024UDIT-CAnswerDate RecordedQ1: How often do you have a [...] housing, medical care, and heating?Not hard at all11/18/2024[facility] [place] of Occupational Health - Occupational Stress QuestionnaireAnswerDate [...] were you homeless or living in a residential (including now)?No11/18/2024Sex and Gender InformationValue Date RecordedSex Assigned at BirthNot on fileLegal UkzCnmt6101/25/2023 6:45 PM EDT Gender IdentityNot on fileSexual OrientationNot on file Last Filed Vital Signs Vital SignReadingTime TakenCommentsBlood Koqhfign270/8404/01/2025 9:00 AM EDT Uvnlk343804/01/2025 9:00 AM VQGIjfhjeadckt36.1 ??C (98.7 ??F)11/18/2024 10:47 AM ESTRespiratory Qcby072804/01/2025 9:00 AM EDTOxygen Gmttewytwl44%04/01/2025 9:00 AM EDTInhaled Oxygen Concentration--[place]299 kg (343 lb)04/01/2025 9:00 AM EDT Grueuv393.6 cm (6' 5 )04/01/2025 9:00 AM EDTBody Mass Index40.67004/01/2025 9:00 AM EDT Plan of Treatment Health MaintenanceDue DateLast DoneCommentsCOVID-19 Vaccine ( season) 509/, 07/19/2021Influenza Vaccine (#1)2025Pneumococcal Vaccine: Pediatrics (0 to 5 Years) and At-Risk Patients (6 to 64 Years)Aged Out No longer eligible based on patient's age to complete this topic Insurance Care Teams Team MemberRelationshipSpecialtyStart DateEnd Boo Jamil MD [address] [facility] [address] [place] [address] PCP - GeneralInternal Medicine03/21/23 Nicole Acevedo ASBESTOS WIRE FINISHER PCP - [facility]11/13/24 Susi Bravo PA Physician AssistantNeurology01/28/25
== END 2025-10-30 10:25 | disposition home or self-care (01) ==
LOC: MRI 10:26
PROVIDERS: PCP Internal Medicine; Visit Provider Anesthesiology
DX: M48.02 Spinal stenosis, cervical region (principal); M50.30 Other cervical disc degeneration, unspecified cervical region
CPT/HCPCS: 72141

== ENCOUNTER 2025-11-03 14:04 | Outpatient (OUT) | payer OTHER, SELFPAY ==
--- OUTSIDE RECORDS SUMMARY | 2025-11-03 14:09 | XMS_ITS | Encounter Summary ---
Author Organization [facility] Address [address] [place] [address] Care Team Providers Care Vending Technician Name Role Phone January Jamil MD Primary Care Provider [phone] Nicole Acevedo NP Unavailable [phone] Susi Bravo Unavailable Encounter Details DateTypeDepartmentCare Team (Latest Contact Info)Iberlyfoxym26/18/2025linisync Result Encounter [facility] External Department Unsolicited Provider, Generic External Data Social History Tobacco UseTypesPacks/DayYears UsedDateSmoking Tobacco: NeverSmokeless [...] a week 11/18/2024How often do you attend gnosticist or zoroastrianism services?Never11/18/2024Do you belong to any clubs or organizations such as gnosticist groups, unions, fraternal or athletic groups, or school groups?No11/18/2024How often do you attend meetings of the clubs or organizations you belong to?Never11/18/2024re you , , , , never , or living with a partner?Never cfesuua7611/18/2024UDIT-CAnswerDate RecordedQ1: How often do you have a [...] housing, medical care, and heating?Not hard at all11/18/2024[facility] [place] of Occupational Health - Occupational Stress QuestionnaireAnswerDate [...] were you homeless or living in a retirement (including now)?No11/18/2024Sex and Gender InformationValue Date RecordedSex Assigned at BirthNot on fileLegal PpqPemu0501/25/2023 6:45 PM EDT Gender IdentityNot on fileSexual OrientationNot on filedocumented as of this encounter Plan of Treatment Not on file documented as of this encounter Procedures Procedure NamePriorityDate/TimeAssociated DiagnosisCommentsMR CERVICAL SPINE WO IVGGUJGB10/18/2025 12:30 PM EST documented in this encounter Results * MR cervical spine wo contrast (10/30/2025 12:30 PM EST)Anatomical Region LateralityModalitySpine, C-spineMagnetic ResonanceSpecimen (Source)Anatomical Location / LateralityCollection Method / VolumeCollection TimeReceived Time 10/30/2025 12:30 PM EST Narrative 10/30/2025 12:32 PM EST [facility] ?[address] ? [place] [address] ? Magnetic Resonance Report ? Signed ? Patient: ESVADIM ?MR#: [id number] ?? : 1990 ?Acct:[id number] ?? Age/Sex: 35 / M ?ADM Date: 10/30/25 ?? Loc: MRI ? Attending Dr: Jannet Gil M.D. ? Ordering Physician: Jannet Gil M.D. ?? Date of Service: 10/30/25 ?? Procedure(s): MR cervical spine wo con ?? Accession Number(s): [id number] ? cc: JANUARY JAMIL ; Jannet Gil M.D. ? [facility] ? [address] ? [place] [address] ? Patient Name: ?? VADIM PENNY ? MRN: [id number] ? date: 1990 ?Sex: M ?? Assigned Patient Location: MRI ?? Current Patient Location: MRI ?? Accession/Order Number: [id number] ?? Exam Date: 10/30/2025 ??10:35 ?Report Date: 10/30/2025 ??12:30 ? At the request of: ?? ANDRIUS ??GIEDRAITIS ??MD ? Procedure: ??MR cervical spine wo con ? EXAMINATION: ??MRI OF THE CERVICAL SPINE WITHOUT CONTRAST ? CLINICAL DATA: ??Chronic neck pain with left arm numbness ? COMPARISON: 03/15/2023 ? TECHNIQUE: ??Multiecho imaging was performed in the sagittal and axial plane ?? without contrast administration. ? FINDINGS: ??There is continued straightening of the normal cervical lordosis. ? Alignment is maintained on the sagittal images. ??There is no marrow edema or ?? acute compression fractures. ??There is a normal cervicomedullary junction. ? The cord is normal in caliber and signal intensity throughout its imaged ?? course. ??A few small shotty cervical lymph nodes are visualized. ? At C2-3, no disc bulge or herniation is seen. ??There is slight asymmetric ?? facet disease on the left. ??No stenosis is identified. ? At C3-4, the disc is normal in height and signal intensity. ??No disc bulge or ?? herniation is noted. ??There is mild facet disease, greater on the left. ??There ?? is mild right and suspected moderate left foraminal encroachment. ? At C4-5, the disc is within normal limits for height and signal intensity. ??No ?? disc bulge or herniation is identified. ??There is bilateral facet hypertrophy, ?? greater on the left where there is associated moderate foraminal encroachment. ? At C5-6 there is disc desiccation. ??There is mild central/left parasagittal ?? disc osteophytic bulging. ??There is minor facet disease. ??There is continued ?? thecal sac effacement on the left approaching and slightly indenting the cord, ?? similar to the prior. ??Slight foraminal encroachment is present, greater on ?? the left. ? At C6-7, there is minor disco-osteophytic bulging toward the left lateral ?? recess/foramen. ??There is no significant thecal sac effacement. ??There is mild ?? facet disease. ??Mild to moderate left foraminal encroachment is again noted. ? At the cervicothoracic junction, there is a broad-based left parasagittal disc ?? protrusion that is similar to the prior. ??There is continued mild thecal sac ?? and moderate left neural foraminal encroachment. ? At T2-3, there is no axial imaging however there is disco exophytic bulging in ?? the right parasagittal region extending through the neural foramen where there ?? is associated thecal sac effacement and foraminal encroachment. ? MR/MR cervical spine wo con ?? IMPRESSION:: ? CONTINUED STRAIGHTENING OF THE NORMAL CERVICAL LORDOSIS. ? CONTINUED MILD DISCOVERTEBRAL DEGENERATIVE CHANGES, GREATER DISTALLY ?? OUTLINED ABOVE. ? Impression dictated by: Sarah Salmon M.D. ??10/30/2025 12:30 PM ? Dictation Location: RADIO-PC-30 ? Electronically authenticated by: [id number] ??Y ?? Date: 10/30/2025 ??12:30 ? Dictated By: ?Sarah Salmon M.D. ? Signed By: ?10/30/25 1232 ? DD/ 1230 ? TD/TT: ? Art Museum Aide: Procedure Note Radiology, Radiologist, MD - 10/30/2025 [place] [address] Magnetic Resonance Report Signed Patient: VADIM PENNY AMR#: [id number] : 1990Acct:[id number] Age/Sex: 35 / MADM Date: 10/30/25 Loc: MRI Attending Dr: Jannet Gil M.D. Ordering Physician: Jannet Gil M.D. Date of Service: 10/30/25 Procedure(s): MR cervical spine wo con Accession Number(s): [id number] cc: JANUARY JAMIL ; Jannet Gil M.D. The [place] [id number] Patient Name: VADIM PENNY MRN: [id number] date: 1990 Sex: M Assigned Patient Location: MRI Current Patient Location: MRI Accession/Order Number: [id number] Exam Date: 10/30/2025 10:35 Report Date: 10/30/2025 12:30 At the request of: JANNET GIL MD Procedure: MR cervical spine wo con EXAMINATION: MRI OF THE CERVICAL SPINE WITHOUT CONTRAST CLINICAL DATA: Chronic neck pain with left arm numbness COMPARISON: 03/15/2023 TECHNIQUE: Multiecho imaging was performed in the sagittal and axialplane without contrast administration. FINDINGS: There is continued straightening of the normal cervicallordosis. Alignment is maintained on the sagittal images. There is no marrow edemaor acute compression fractures. There is a normal cervicomedullary junction. The cord is normal in caliber and signal intensity throughout its imaged course. A few small shotty cervical lymph nodes are visualized. At C2-3, no disc bulge or herniation is seen. There is slight asymmetric facet disease on the left. No stenosis is identified. At C3-4, the disc is normal in height and signal intensity. No disc bulgeor herniation is noted. There is mild facet disease, greater on the left.There is mild right and suspected moderate left foraminal encroachment. At C4-5, the disc is within normal limits for height and signal intensity.No disc bulge or herniation is identified. There is bilateral facethypertrophy, greater on the left where there is associated moderate foraminalencroachment. At C5-6 there is disc desiccation. There is mild central/leftparasagittal disc osteophytic bulging. There is minor facet disease. There iscontinued thecal sac effacement on the left approaching and slightly indenting thecord, similar to the prior. Slight foraminal encroachment is present, greateron the left. At C6-7, there is minor disco-osteophytic bulging toward the left lateral recess/foramen. There is no significant thecal sac effacement. There ismild facet disease. Mild to moderate left foraminal encroachment is againnoted. At the cervicothoracic junction, there is a broad-based left parasagittaldisc protrusion that is similar to the prior. There is continued mild thecalsac and moderate left neural foraminal encroachment. At T2-3, there is no axial imaging however there is disco exophyticbulging in the right parasagittal region extending through the neural foramen wherethere is associated thecal sac effacement and foraminal encroachment. MR/MR cervical spine wo con IMPRESSION:: CONTINUED STRAIGHTENING OF THE NORMAL CERVICAL LORDOSIS. CONTINUED MILD DISCOVERTEBRAL DEGENERATIVE CHANGES, GREATER DISTALLY OUTLINED ABOVE. Impression dictated by: Sarah Salmon M.D. 10/30/2025 12:30 PM Dictation Location: [place] [address] Electronically authenticated by: [id number] Y Date: 2:30 Dictated By: Sarah Salmon M.D. Signed By:10/30/25 1232 DD/ 1230 TD/TT: Art Museum Aide: Authorizing ProviderResult TypeResult StatusGeneric External Data ProviderIMG MRI PROCEDURESFinal Result documented in this encounter Visit Diagnoses Not on filedocumented in this encounter Care Teams Team MemberRelationshipSpecialtyStart DateEnd Date January Jamil MD [address] [address] PCP - GeneralInternal Medicine03/21/23 Nicole Acevedo NP PCP - [facility]11/13/24 Susi Bravo PA Physician AssistantNeurology01/28/25documented as of this encounter
--- OUTSIDE RECORDS SUMMARY | 2025-11-03 14:09 | XMS_ITS | Clinical Summary ---
Author Organization [facility] Address [address] [place] [address] Care Team Providers Care Deliverer Outside Name Role Phone January Jamil MD Primary Care Provider [phone] Nicole Acevedo NP Unavailable [phone] Susi Bravo Unavailable Allergies Active AllergyReactionsCriticalityNoted DateCommentsAmoxicillinRash,UnknownLow 08/23/2014CefaclorRash,ZljklpiEos56/11/3368PgmkcrirqOxtjoiz68/11/2014Colchicine GI pzwczjfeevcXosyeb86/12/2024 Diarrhea, Vomiting LshnbhbnydTww24/12/2024 Difficulty focusing. Medications MedicationSigDispense QuantityRefillsLast FilledStart DateEnd [...] 5Active Active Problems ProblemNoted DateDiagnosed DateImpaired fasting lxjupuh1612/24/2024Morbid obesity with BMI of 50.0-59.9, adult4Cervical ujudgejxo96/31/2024arpal tunnel syndrome, left upper limb07/13/2024 Overview (07/13/2024): Mild CTS on the left on EMG. He is wearing splints at night which helps with the symptoms. Can consider ortho referral based on his symptoms Tvsgvylusuy84/31/2024egeneration of cervical intervertebral disc07/13/2024 Carpal tunnel syndrome of left wrist07/13/2024Spondylosis of cervical region without myelopathy or uwwdowctgmjky32/31/2024 Overview (07/13/2024): The patient is a 33 year old male that presents with neck pain that radiates into the right shoulder. He has multilevel DDD of the cervical spine. He is on Gabapentin, flexeril and skelaxin with toilerable symptoms. MRI did show significant foraminal stenosis the is contributing to his radicular symptoms. We can consider neurosurgical referral based on his clinical course. Lumbar rmceouid21/02/2024Other chronic pain11/14/2023epression with anxiety 3Disc displacement, olqoav8210/18/2023Elevated uric acid in blood 10/18/2023outy aoezmhyygnn27/06/2023Lumbar oexxewexuqhfu60/11/2022 Encounters DateTypeDepartmentCare YqteYnidseurhlv01/18/2025Clinisync Result Encounter [facility] External Department Unsolicited Provider, Generic External Data 5Abstract [facility] [address] [facility] [address] [place] [id number] January Jamil MD from Last 3 Months Immunizations ImmunizationAdministration DatesNext UbvXEG8804/04/1993,02/10/1993,1992DTaP, Dnvozgguyrs72/06/1998,02/23/1994Hep B, Adolescent or Ejsknumjh53/21/1994, 06/08/1994,02/23/1994HiB, nsdgvsahfnp40/13/1994,04/04/1993,02/10/1993,1992 MMR03/18/1998,02/23/1994OPV03/18/1998,02/23/1994,02/10/1993,1992 Family History SaawklruZmmaPzeetcGoitxaohTslvlkbg7VbvaxgCebgxPwyiuyQkfxc Social History Tobacco UseTypesPacks/DayYears UsedDateSmoking Tobacco: NeverSmokeless [...] 11/18/2024How often do you attend congregation or scientologist services?Never11/18/2024Do you belong to any clubs or organizations such as congregation groups, unions, fraternal or athletic groups, or school groups?No11/18/2024How often do you attend meetings of the clubs or organizations you belong to?Never11/18/2024re you , , , , never , or living with a partner?Never zdtxuxi8711/18/2024UDIT-CAnswerDate RecordedQ1: How often do you have a [...] housing, medical care, and heating?Not hard at all11/18/2024[facility] [place] of Occupational Health - Occupational Stress QuestionnaireAnswerDate [...] were you homeless or living in a penitentiary (including now)?No11/18/2024Sex and Gender InformationValue Date RecordedSex Assigned at BirthNot on fileLegal DpfWymj3101/25/2023 6:45 PM EDT Gender IdentityNot on fileSexual OrientationNot on file Last Filed Vital Signs Vital SignReadingTime TakenCommentsBlood Nttrhuzw528/8404/01/2025 9:00 AM EDT Plwfd358504/01/2025 9:00 AM VNBYrmmsovsxls93.1 ??C (98.7 ??F)11/18/2024 10:47 AM ESTRespiratory Nsyr556604/01/2025 9:00 AM EDTOxygen Jceefwmxaj24%04/01/2025 9:00 AM EDTInhaled Oxygen Concentration--Uhttkh224 kg (343 lb)04/01/2025 9:00 AM EDT Yzuuvl095.6 cm (6' 5 )04/01/2025 9:00 AM EDTBody Mass Index40.67004/01/2025 9:00 AM EDT Plan of Treatment Health MaintenanceDue DateLast DoneCommentsCOVID-19 Vaccine ( season) /, 07/19/2021Influenza Vaccine (#1)2025Pneumococcal Vaccine: Pediatrics (0 to 5 Years) and At-Risk Patients (6 to 64 Years)Aged Out No longer eligible based on patient's age to complete this topic Procedures Procedure NamePriorityDate/TimeAssociated DiagnosisCommentsMR CERVICAL SPINE WO ZLYYQKUU35/18/2025 12:30 PM EST from Last 3 Months Results * MR cervical spine wo contrast (10/30/2025 12:30 PM EST)Anatomical Region LateralityModalitySpine, C-spineMagnetic ResonanceSpecimen (Source)Anatomical Location / LateralityCollection Method / VolumeCollection TimeReceived Time 10/30/2025 12:30 PM EST Narrative 10/30/2025 12:32 PM EST [facility] ?[address] ? [place] [address] ? Magnetic Resonance Report ? Signed ? Patient: ESVADIM Cary ?MR#: [id number] ?? : 1990 ?Acct:[id number] ?? Age/Sex: 35 / M ?ADM Date: 10/30/25 ?? Loc: MRI ? Attending Dr: Jannet Gil M.D. ? Ordering Physician: Jannet Gil M.D. ?? Date of Service: 10/30/25 ?? Procedure(s): MR cervical spine wo con ?? Accession Number(s): [id number] ? cc: JANUARY JAMIL ; Jannet Gil M.D. ? [facility] ? [address] ? [place] [address] ? Patient Name: ?? VADIM PENNY ? MRN: [id number] ? date: 1990 ?Sex: M ?? Assigned Patient Location: MRI ?? Current Patient Location: MRI ?? Accession/Order Number: [id number] ?? Exam Date: 10/30/2025 ??10:35 ?Report Date: [...] M.D. ??10/30/2025 12:30 PM ? Dictation Location: [place] [address] ? Electronically authenticated by: [id number] ??Y ?? Date: 10/30/2025 ??12:30 ? Dictated By: ?Sarah Salmon M.D. ? Signed By: ?10/30/25 1232 ? DD/ 1230 ? TD/TT: ? Preassembler And Inspector: Procedure Note Radiology, Radiologist, - 10/30/2025 [place] [address] Magnetic Resonance Report Signed Patient: VADIM PENNY AMR#: [id number] : 1990Acct:[id number] Age/Sex: 35 / MADM Date: 10/30/25 Loc: MRI Attending Dr: Jannet Gil M.D. Ordering Physician: Jannet Gil M.D. Date of Service: 10/30/25 Procedure(s): MR cervical spine wo con Accession Number(s): [id number] cc: JANUARY JAMIL ; Jannet Gil M.D. The [address] [address] Patient Name: VADIM PENNY MRN: [id number] date: 1990 Sex: M Assigned Patient Location: MRI Current Patient Location: MRI Accession/Order Number: [id number] Exam Date: 10/30/2025 10:35 Report Date: 10/30/2025 [...] Salmon M.D. 10/30/2025 12:30 PM Dictation Location: [place] [address] Electronically authenticated by: [id number] Y Date: 2:30 Dictated By: Sarah Salmon M.D. Signed By:10/30/25 1232 DD/ 1230 TD/TT: Preassembler And Inspector: Authorizing ProviderResult TypeResult StatusGeneric External Data ProviderIMG MRI PROCEDURESFinal Result from Last 3 Months Insurance Care Teams Team MemberRelationshipSpecialtyStart DateEnd Date January Jamil MD [address] [facility] [address] [place] [address] [facility] - [facility]03/21/23 Nicole Acevedo NP PCP - [facility]11/13/24 Susi Bravo PA Physician AssistantNeurology01/28/25
--- OUTSIDE RECORDS SUMMARY | 2025-11-03 14:09 | XMS_ITS | Clinical Summary ---
Author Organization [facility] Address [address] [place], [place] [address] Care Team Providers Care Battery Mechanic Name Role Phone Omero TORRES MD, Boo Rainey Primary Care Provider [phone] Allergies Active AllergyReactionsCriticalityNoted BcbhUxqemnipFgyhdjmmhjrNgtdxyp84/11/2014 ZwzgdlcmPjmbhho09/11/7593GljgqizpvRpvvcdd09/11/2014 Medications MedicationSigDispense QuantityRefillsLast FilledStart DateEnd DateStatus diclofenac [...] tablet 12/28/2021ctive Active Problems ProblemNoted DateDiagnosed DateLumbar quoeyczcbtmgf50/11/2022cute lumbar lpepxyxfunpkp18/11/2022 Social History Tobacco UseTypesPacks/DayYears UsedDateSmoking Tobacco: NeverSmokeless Tobacco: NeverAlcohol UseStandard Drinks/WeekCommentsYes0 (1 standard drink = 0.6 oz pure alcohol)Area Deprivation IndexAnswerDate RecordedNational Score (1-100), lower number is lower eetw680111/28/2022State Score (1-10), lower number is lower risk Not on file3Data from: https://www.neighborhoodatlas.medicine.[facility].edu/. Last address used for [address]11/28/2022Sex and Gender InformationValueDate Recorded Sex Assigned at BirthNot on fileLegal KdqTrvi7312/24/2021 11:14 AM ESTGender IdentityNot on fileSexual OrientationNot on file Last Filed Vital Signs Vital SignReadingTime TakenCommentsBlood Ujltqbbn192/56001/01/2022 9:29 AM EST Bvubi455701/01/2022 9:29 AM CDJPwxpiijkifb02.8 ??C (98.2 ??F)01/01/2022 9:29 AM ESTRespiratory Wxfz906101/01/2022 9:29 AM ESTOxygen Zwswzvshxl094%01/01/2022 9:29 AM ESTInhaled Oxygen Concentration--Adsjeu440.3 kg (338 lb)06/02/2022 8:33 AM BSZKaoovg052 cm (6' 4 )12/28/2021 1:04 PM ESTBody Mass Index41.14012/28/2021 1:04 PM EST Plan of Treatment Health MaintenanceDue DateLast DoneCommentsDTaP,Tdap,Td Vaccine (6 - Tdap) , 02/23/1994, 04/04/1993, Additional history existsAnxiety Dmmwyjaeu60/01/2010Depression Ehavmdwvu23/01/2010HIV Hotjaxwhq29/01/2010 Hepatitis C Cfvyyccru83/01/2010HPV Vaccine (1 - 3-dose SCDM series)2019 Covid-19 Vaccine (3 2024- season)509/, 07/19/2021Influenza Vaccine (#1)2025Hepatitis B QomqixkSpwcueikr20/21/1994, 06/08/1994, 02/23/1994 Insurance Advance Directives * Full Code (Latest Code Status on File) Date ActivatedDate InactivatedComments12/24/2021 9:32 PM2 4:42 PMQuestion AnswerCommentsFull Code Order Discussed With:* Patient Care Teams Team MemberRelationshipSpecialtyStart DateEnd Date Boo Jamil II, MD [address] [facility] [address] [place] [address] PCP - GeneralInternal Medicine12/24/21
--- NOTE | 2025-11-03 15:33 | PM.CN ---
Consult Note: HPI Data of Consult Patient: known to practice within the last 3 years Consult date: 11/03/25 Requesting Physician: Jannet Gil MD Primary Care Provider: JANUARY SIMS Consult Narrative Reason for consult: neck pain, bilateral arm numbness Narrative: 35yom who presents for assessment. notes persistence of neck pain and bilateral arm numbness. cervical mri reviewed, significant for multilevel disc bulging with encroachment of left foramen, particularly at c5-6 and c6-7. also multilevel facet arthropathy appreciated. has completed >6 weeks of provider directed home exercise course, physical therapy. notes some relief with recent onset of lyrica. cc:: CC: Jannet Gil MD Review of Systems ROS Status of ROS 10 or more systems reviewed and unremarkable except as noted in history and below PFSH [facility] Medical History Kidney stone ?N20.0 - Calculus of kidney (ICD-10) Surgical History Hx of tonsillectomy ?Z90.89 - Acquired absence of other organs (ICD-10) Meds Home Medications and Allergies Home Medications ?Medication ?Instructions ?Recorded ?Confirmed ?Type pregabalin 50 mg capsule (Lyrica) 50 mg PO TID #90 caps 10/13/25 Rx Allergies Allergy/AdvReac Type Severity Reaction Status Date / Time amoxicillin Allergy Unknown Verified 10/13/25 14:06 cefaclor (From Ceclor) Allergy Unknown Verified 10/13/25 14:06 cefprozil (From Cefzil) Allergy Unknown Verified 10/13/25 14:06 Exam Narrative Exam Narrative: Psych-alert and oriented x 3.? Attentive and appropriate, constitutionally normal, displays normal mood and affect per situation.? There are no obvious deficits in memory, reasoning, or intellect.? Skin-no obvious rashes, bruising, or erythema noted to the patient's area of pain.? Extremities-upper extremities are warm with minimal edema and palpable pulses. Cervical- tenderness to palpation noted in the cervical spine and paraspinal musculature.? Pain is elicited with flexion, extension, and lateral rotation of the cervical spine.? Range of motion is diminished due to pain. Facet loading maneuvers are positive.? Strength-unremarkable and within normal limits Sensory-no notable sensory deficits in the bilateral upper extremities to touch or pinprick with the exception to decreased sensation to the bilateral C5, 6, 7 dermatomal distribution.? Coordination remains intact.? Gait remains non-antalgic. Assessment and Plan Assessment and Plan (1) Cervical stenosis of spinal canal: (2) Cervical radiculopathy: (3) Cervical disc displacement: Plan 35yom who presents for assessment. failed conservative measures, as noted. imaging reviewed, as noted. given symptoms and imaging, prudent to attempt left c5-6, c6-7 tfesi under fluoroscopic guidance. he is in agreement. meds reviewed, will continue lyrica for now. follow up after procedure.
== END 2025-11-03 14:05 | disposition home or self-care (01) ==
LOC: PM 14:05
PROVIDERS: PCP Internal Medicine; Visit Provider Anesthesiology
DX: M48.02 Spinal stenosis, cervical region (principal); M54.12 Radiculopathy, cervical region; M50.20 Other cervical disc displacement, unspecified cervical region
CPT/HCPCS: G0463